=== PATIENT | female | born 1995 | race African-American/Black ===

== ENCOUNTER 2025-06-01 17:17 | Emergency (ER) | payer SELFPAY ==
[~2025-06-01] VITALS: Ht 162.6 cm; Wt 58.7 kg
[2025-06-01 17:24] VITALS: TEMP 98.9
--- NOTE | 2025-06-01 17:41 | ED.PDOC ---
ROAD [employer]DU[employer] HPI Comments 29y F who presents to the ED for chief complaint of abdominal pain. Pt states she is currently 16 weeks , and states she has been having L sided abdominal pain radiating to the L flank area. Pt states she had Ultrasound at 12 weeks states they had found a lump on the L side of her abdominal pain and states since, she has been having pain. Pt otherwise states she is finishing course of her antibiotics for recently diagnosed UTI. Pt otherwise denies nausea, vomiting, diarrhea, fever, cough, chills, or associated symptoms. Pt states due to job, she is often on her feet. Pt otherwise denies any other symptoms at this time. 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 Hx Family History Family History: Reviewed,noncontributory to illness Social History Smoker: Non-Smoker Alcohol: Denies ETOH Use Drugs: Denies Drug Use Lives In: Home Constitutional: denies: chills, diaphoresis, fatigue, fever, malaise, sweats, weakness, others EENTM: denies: blurred vision, double vision, ear bleeding, ear discharge, ear drainage, ear pain, ear ringing, eye pain, eye redness, hearing loss, mouth pain, mouth swelling, nasal discharge, nose bleeding, nose congestion, nose pain, photophobia, tearing, throat pain, throat swelling, voice changes, others Respiratory: denies: cough, hemoptysis, orthopnea, SOB at rest, shortness of breath, SOB with excertion, stridor, wheezing, others Cardiovascular: denies: chest pain, dizzy spells, diaphoresis, Dyspnea on exertion, edema, irregular heart beat, left arm pain, lightheadedness, palpitations, PND, syncope, others Gastrointestinal: reports: abdominal pain; denies: abdomen distended, blood streaked bowels, constipated, diarrhea, dysphagia, difficulty swallowing, hematemesis, melena, nausea, poor appetite, poor fluid intake, rectal bleeding, rectal pain, vomiting, others Genitourinary: denies: abnormal vagina bleeding, burning, dyspareunia, dysuria, flank pain, frequency, hematuria, incontinence, pain, , vagina discharge, urgency, others Neurological: denies: dizziness, fainting, headache, left sided numbness, left sided weakness, numbness, paresthesia, pre-existing deficit, right sided numbness, right sided weakness, seizure, speech problems, tingling, tremors, weakness, others Musculoskeletal: denies: back pain, gout, joint pain, joint swelling, muscle pain, muscle stiffness, neck pain, others Integumetry: denies: bruises, change in color, change in hair/nails, dryness, laceration, lesions, lumps, rash, wounds, others Allergic/Immunocompromised: denies: Difficulty Healing, Frequent Infections, Hives, Itching, others Hematologic/Lymphatic: denies: anemia, blood clots, easy bleeding, easy bruising, swollen glands, others Endocrine: denies: excessive hunger, excessive sweating, excessive thirst, excessive urination, flushing, intolerance to cold, intolerance to heat, unexplained weight gain, unexplained weight loss, others Psychiatric: denies: anxiety, bipolar disorder, depression, hopeless, panic disorder, schizophrenia, sleepless, suicidal, others All Other Systems: Reviewed and Negative Physical Exam General Appearance: Mild Distress HEENT: Normal ENT Inspection, Pharynx Normal, TMs Normal Neck: Full Range of Motion, Non-Tender, Normal, Normal Inspection Respiratory: Chest Non-Tender, Lungs Clear, No Accessory Muscle Use, No Respiratory Distress, Normal Breath Sounds Cardiovascular: No Edema, No JVD, No Murmur, No Gallop, Normal Peripheral Pulses, Regular Rate/Rhythm Breast Exam: Deferred Gastrointestinal: No Pulsatile Mass, Normal Bowel Sounds, Soft, Other (There seems to be a palpable mass to the left lateral abdominal area. The patient does have a gravid uterus) Genitalia: Deferred Pelvic: Deferred Rectal: Deferred Extremities: No calf tenderness, Normal capillary refill, Normal inspection, Normal range of motion, Non-tender, No pedal edema Musculoskeletal : Apperance: Normal Neurologic: Alert, silver plater II-XII nml as Tested, No Motor Deficits, Normal Affect, Normal Mood, No Sensory Deficits Cerebellar Function: Normal Reflexes: Normal Skin: Dry, Normal Color, Warm Lymphatic: No Adenopathy Was a procedure done? Was a procedure done?: No Differential Diagnosis (SENIOR TECHNICAL ANALYST) Vaginal Bleeding: - Complete, - Incomplete, - Threatened, Other (current , ) X-Ray, Labs, Meds, VS Vital Signs Date Time Temp Pulse Resp B/P (MAP) Pulse Ox O2 Delivery O2 Flow Rate FiO2 06/01/25 17:24 98.9 93 16 122/61 (81) 100 98.9 Ultrasound of the abdomen shows:Impression: 1. Twin live intrauterine in variable presentation. 2. 10.1 x 9.3 x 9.9 cm complex structure with peripheral vascularity in the left adnexa which extends up to the left kidney, nonspecific. Recommend MRI for further evaluation. 3. Myomatous uterus. At this time, we are consulting with the OBGYN Dr. Garay We did speak with Dr. Garay and the patient will be transferred back to her primary care doctor or OBGYN The patient will receive a referral to the high-risk OB Images Reviewed?: Images reviewed and evaluated by me Time of 1ST Reevaluation: 18:10 Reevaluation 1ST: Unchanged Patient Education/Counseling: Diagnosis, Treatment, Prognosis Family Education/Counseling: No Family Present Departure 1 Departure Time of Disposition: 19:30 Impression: Primary Impression: Abdominal pain in Qualified Codes: O26.899 - Other specified related conditions, unspecified trimester; R10.9 - Unspecified abdominal pain Additional Impression: Twin gestation with first Disposition: HOME / SELF CARE / HOMELESS Condition: Fair Discharged With: Self Critical Care Note Critical Care Time?: No Stability Stability form required: No Heart Score Heart Score: Heart Score Response (Comments) Value History N/A 0 EKG N/A 0 Age N/A 0 Risk Factors N/A 0 Troponin N/A 0 Total 0 I personally scribed for PATEL HANNA MD ([email or web address]) on 06/01/25 at 17:41. Electronically submitted by Sid Rojas ([facility] [email or web address]). PATEL HANNA MD Jun 01, 2025 17:41
--- NOTE | 2025-06-01 19:17 | DVH ---
EXAM: US OB ULTRASOUND COMP GTR 14 WKS CLINICAL HISTORY: Pain on the left flank area with twin gestation COMPARISON: None TECHNIQUE: Grayscale, color-flow Doppler, and spectral Doppler ultrasound of the pelvis is performed by transabdominal technique. Findings: Twin live intrauterine . Monochorionic diamniotic. Cervical os appears closed. Placenta is posterior in location without evidence of previa or abruption. Twin A in variable presentation with heart rate of 150 bpm. Estimated gestational age 15 weeks 1 day based on parameters which include biparietal diameter 2.9 cm, head circumference 11.0 cm, abdominal circumference 8.8 cm, and femur length 1.6 cm. Standard ratios within normal limits. Estimated weight 110.7 g (0 lb 4 oz ). Twin B in variable presentation with heart rate of 148 bpm. Estimated gestational age 15 weeks 4 days based on parameters which include biparietal diameter 3.2 cm, head circumference 11.3 cm, abdominal circumference 10.1 cm, and femur length 1.[address] ratios within normal limits. Estimated weight 125.7 g (0 lb 4 oz ). Myomatous uterus. 10.1 x 9.3 x 9.9 cm complex structure with peripheral vascularity in the left adnex a which extends up to the left kidney. Left kidney is within normal limits. Debris within the urinary bladder. Impression: 1. Twin live intrauterine in variable presentation. 2. 10.1 x 9.3 x 9.9 cm complex structure with peripheral vascularity in the left adnexa which extends up to the left kidney, nonspecific. Recommend MRI for further evaluation. 3. Myomatous uterus.
[2025-06-01 20:00] VITALS: BP 111/64; PULSE 76; RESP 18; O2SAT 98
== END 2025-06-01 20:22 | disposition home or self-care (01) ==
LOC: ER 17:17
DX: O26.891 Other specified pregnancy related conditions, first trimester (principal); R10.9 Unspecified abdominal pain; Z3A.16 16 weeks gestation of pregnancy
CPT/HCPCS: 76805